=== PATIENT | male | born 1985 ===

== ENCOUNTER 2017-03-12 09:51 | Emergency (ER) | payer OTHER, BC ==
[2017-03-12 10:11] VITALS: RESP 16; TEMP 98.1
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
[2017-03-12 12:43] VITALS: BP 116/62; PULSE 76; O2SAT 96
== END 2017-03-12 12:40 | disposition home or self-care (01) ==
LOC: ED 09:51
DX: M79.631 Pain in right forearm (principal); M54.5 Low back pain
CPT/HCPCS: 72110; 73090; 96372; 99285; J1885